=== PATIENT | female | born 1950 | race Caucasian/White ===

== ENCOUNTER 2023-05-26 09:34 | Day surgery (SDC) | payer MEDICARE ==
[~2023-05-26] VITALS: Ht 165.1 cm; Wt 86.5 kg
[2023-05-26] VITALS (13 sets, daily range): BP systolic 99–132; BP diastolic 61–84
[~2023-05-26 09:34] MED LIST: ACET500 PO; AMLO5 PO; HYDACE5 PO; IBUP800 PO; MECL25 PO; MELA3 PO; META800; POTCHL20ER PO; PROM25 PO; SERT25 PO; TRAM50
--- NOTE | 2023-05-26 12:26 | NUR ---
05/26/23 1226 Courtney Rodriguez SPINAL NERVE BLOCK COMPLETED BY DR. CASTILLO UPON ENTRY TO OR. PT TOLERATED WELL.
--- NOTE | 2023-05-26 14:57 | NUR ---
PATIENT CAME BACK FROM PACU TODAY. POD 0 RIGHT TOTAL KNEE PATIENT IS A&OX4. VS ARE WNL AND IS ON RA. PATIENT HAD A SPINAL DURING THE PROCEDURE AND REPORTS NUMBNESS FROM THE THIGHS DOWN BUT IS ABLE TO MOVE HER TOES WHEN ASKED. PATIENT DENIES PAIN AT THIS TIME. HER RIGHT KNEE HAS AN MALU WRAP AND AQUACEL THAT IS C/D/I. SHE IS TOLERATING PO INTAKE. PATIENT IS LAYING IN BED WITH CALL LIGHT IN REACH AND AT BEDSIDE.
--- NOTE | 2023-05-26 15:52 | NUR ---
WAS GIVEN HARD PERSCRIPTIONS.
--- NOTE | 2023-05-26 17:36 | NUR ---
SHIFT SUMMARY: POD 0 RIGHT TOTAL KNEE PATIENT IS A&OX4. VS ARE WNL AND IS ON RA. PATIENT REPORTS 2/10 PAIN AND WAS GIVEN PO OXY AND IV TORADOL WHICH HAS BEEN MANAGING IT SO FAR THIS SHIFT. HER RIGHT KNEE HAS AN AQUACEL AND MALU WRAP THAT IS C/D/I. PATIENT IS STILL REPORTING NUMBNESS FROM HER KNEES DOWN BUT IS ABLE TO MOVE HER TOES WHEN ASKED. PEDAL PULSES ARE STRONG AND WARM TO TOUCH. PATIENT IS TOLERATING PO INTAKE. SHE IS LAYING IN BED WITH CALL LIGHT IN REACH AND AT BEDSIDE.
[2023-05-26] MEDS ORDERED: Percocet 5-3251 EACH PO (18:04)
[2023-05-26] MEDS ORDERED: ASPI81CH PO (18:04)
[2023-05-27 00:18] VITALS: BP 138/77
[2023-05-27 04:02] LABS: BASOPHILS ABSOLUTE AUTO 0.01 K/mm3 (0.00-0.23); BASOPHILS PERCENT AUTO 0 % (0-2); EOSINOPHILS PERCENT AUTO 0 % (0-6); Hematocrit 32.9 % (33.0-51.0); Hemoglobin 10.8 g/dL (11.5-16.0); IMMATURE GRAN ABSOLUTE AUTO 0.04 K/mm3 (0.00-0.10); IMMATURE GRAN PERCENT AUTO 0 % (0-1); LYMPHOCYTES ABSOLUTE AUTO 1.14 K/mm3 (0.84-5.20); LYMPHOCYTES PERCENT AUTO 11 % (21-46); MONOCYTES ABSOLUTE AUTO 0.46 K/mm3 (0.16-1.47); MONOCYTES PERCENT AUTO 4 % (4-13); Mean Corpuscular HGB 28.7 pg (26.0-34.0); Mean Corpuscular HGB Conc 32.8 g/dL (31.5-36.5); Mean Corpuscular Volume 88 fL (80-100); NEUTROPHILS ABSOLUTE AUTO 9.12 K/mm3 (1.96-9.15); NEUTROPHILS PERCENT AUTO 85 % (41-73); Platelet Count 352 K/mm3 (150-400); RDW Coefficient Variation 12.5 % (11.7-14.2); RDW Standard Deviation 40.2 fL (35.1-46.3); Red Blood Cell Count 3.76 M/mm3 (3.80-5.20); White Blood Cell Count 10.77 K/mm3 (4.00-11.30)
[2023-05-27 04:08] VITALS: BP 141/74
[2023-05-27 04:22] LABS: Bun/Creatinine Ratio 27.1 (12.0-20.0); Calcium, Blood 8.6 mg/dL (8.5-10.1); Creatinine, Blood 0.52 mg/dL (0.40-1.00)
--- NOTE | 2023-05-27 06:50 | NUR ---
SHIFT SUMMARY PT IS HERE POD#1 FOR A RIGHT TOTAL KNEE REPLACEMENT. PT HAS BEEN OOB AND HAS WALKED TO THE BATHROOM WITHOUT INCIDENT. VITAL SIGNS HAVE BEEN STABLE. NO ACUTE EVENTS OVERNIGHT. PT IS CURRENTLY IN THE CHAIR. CALL LIGHT WITHIN REACH.
[2023-05-27 08:16] VITALS: BP 145/82
--- NOTE | 2023-05-27 10:15 | NUR ---
DISCUSSED DC INSTRUCTIONS. CLEARED THERAPY. WAITING FOR SPOUSE TO ARRIVE TO DC HOME.
--- NOTE | 2023-05-27 12:49 | NUR ---
ESCORTED OUT VIA WC
== END 2023-05-27 12:50 | disposition home or self-care (01) ==
LOC: ORSCMMR 09:34 → SURS 13:59 → ORSCMMR 14:00
PROVIDERS: Orthopaedic Surgery
PROC: 0SRC0JA Replacement of Right Knee Joint with Synthetic Substitute, Uncemented, Open Approach (ICD-10-PCS; principal; 2023-05-26 11:00)
PROC: 8E0Y0CZ Robotic Assisted Procedure of Lower Extremity, Open Approach (ICD-10-PCS; principal; 2023-05-26 11:00)
DX: M17.11 Unilateral primary osteoarthritis, right knee (principal); I10 Essential (primary) hypertension; Z79.899 Other long term (current) drug therapy
CPT/HCPCS: 36415; 73560-RT; 80048; 85025; 97110; 97116; 97161; A9270; C1713; C1776; J0171; J0690; J0735; J1100; J1885; J2250; J2371; J2405; J2704; J2795; J3010; J7120

== ENCOUNTER 2025-06-20 07:55 | Emergency (ER) | payer OTHER ==
[~2025-06-20] VITALS: Ht 162.6 cm; Wt 72.6 kg
[~2025-06-20 07:55] MED LIST changes: +ASPI81CH PO; +Percocet 5-3251 EACH PO
[2025-06-20 08:12] LABS: BASOPHILS ABSOLUTE AUTO 0.04 K/mm3 (0.00-0.23); BASOPHILS PERCENT AUTO 1 % (0-2); EOSINOPHILS ABSOLUTE AUTO 0.08 K/mm3 (0.00-0.68); EOSINOPHILS PERCENT AUTO 2 % (0-6); Hematocrit 39.7 % (33.0-51.0); Hemoglobin 13.6 g/dL (11.5-16.0); IMMATURE GRAN ABSOLUTE AUTO 0.01 K/mm3 (0.00-0.10); IMMATURE GRAN PERCENT AUTO 0 % (0-1); LYMPHOCYTES ABSOLUTE AUTO 1.45 K/mm3 (0.84-5.20); LYMPHOCYTES PERCENT AUTO 33 % (21-46); MONOCYTES ABSOLUTE AUTO 0.33 K/mm3 (0.16-1.47); MONOCYTES PERCENT AUTO 7 % (4-13); Mean Corpuscular HGB Conc 34.3 g/dL (31.5-36.5); Mean Corpuscular Volume 85 fL (80-100); NEUTROPHILS ABSOLUTE AUTO 2.52 K/mm3 (1.96-9.15); NEUTROPHILS PERCENT AUTO 57 % (41-73); NRBC ABSOLUTE 0.00 K/mm3 (0.00-0.02); NRBC Auto 0.0 /100 WBC (0.0-0.2); Platelet Count 382 K/mm3 (150-400); RDW Coefficient Variation 13.2 % (11.7-14.2); RDW Standard Deviation 41.1 fL (35.1-46.3)
[2025-06-20 08:32] LABS: Alanine Aminotransfer (ALT/SGP 20.0 U/L (12-78); Albumin, Blood 4.2 g/dL (3.4-5.0); Albumin/Globulin Ratio 1.2 (0.8-1.8); Anion Gap 11.0 mmol/L (3-11); Aspartate Aminotrans (AST/SGOT 11.0 U/L (12-37); Bilirubin, Total 0.9 mg/dL (0.1-1.0); Blood Urea Nitrogen 10.0 mg/dL (8-24); CO2, Blood 25.0 mmol/L (21-32); Calcium, Blood 9.4 mg/dL (8.5-10.1); Chloride, Blood 100.0 mmol/L (98-108); Creatinine, Blood 0.56 mg/dL (0.40-1.00); Globulin, Blood 3.6 g/dL (2.2-4.0); Glucose, Blood 113.0 mg/dL (70-99); Potassium, Blood 3.3 mmol/L (3.5-5.5); Sodium, Blood 133.0 mmol/L (136-145); Total Protein, Blood 7.8 g/dL (6.4-8.2)
[2025-06-20 12:08] VITALS: BP 144/86
== END 2025-06-20 12:55 | disposition home or self-care (01) ==
LOC: ER 07:55
PROVIDERS: Student in an Organized Health Care Education/Training Program
DX: R00.2 Palpitations (principal); R07.89 Other chest pain; J45.909 Unspecified asthma, uncomplicated; Z79.82 Long term (current) use of aspirin; Z79.899 Other long term (current) drug therapy
CPT/HCPCS: 71046; 80053; 83690; 83880; 84484; 85025; 93005; 93010; 93242; 99285-25